=== PATIENT | female | born 1985 | race American Indian/Alaskan Native ===

== ENCOUNTER 2017-03-11 21:35 | Emergency (ER) | payer OTHER ==
[2017-03-11 22:50] LABS: Basophils % (Auto) 0.4 % (0.0-1.8); Eosinophils % (Auto) 3.9 % (0.0-4.3); Hematocrit 41.6 % (30.3-42.9); Hemoglobin 13.8 gm/dl (10.1-14.3); Mean Corpuscular HGB Conc 33 % (30-34); Mean Corpuscular Hemoglobin 28 pg (28-32); Mean Corpuscular Volume 84 fl (79-97); Platelet Count 244 K/mm3 (140-440); Red Blood Count 4.97 M/mm3 (3.65-5.03); Red Cell Distribution Width 13.2 % (13.2-15.2); White Blood Count 8.6 K/mm3 (4.5-11.0)
[2017-03-11 22:55] LABS: Alanine Aminotransferase 11 units/L (7-56); Albumin 4.3 g/dL (3.9-5); Alkaline Phosphatase 74 units/L (35-129); Anion Gap 18 mmol/L; BUN/Creatinine Ratio 11.66; Blood Urea Nitrogen 7 mg/dL (7-17); Calcium 9.6 mg/dL (8.4-10.2); Carbon Dioxide 26 mmol/L (22-30); Chloride 95.9 mmol/L (98-107); Glucose 100 mg/dL (65-100); Lipase 37 units/L (13-60); Potassium 4.2 mmol/L (3.6-5.0); Sodium 136 mmol/L (137-145); Total Protein 8.7 g/dL (6.3-8.2)
[2017-03-12] MEDS ORDERED: MORPHINE IV ONE (01:42)
[2017-03-12] MEDS ORDERED: LIDOCAINE VISCOUS 2% PO ONE (01:42)
[2017-03-12] MEDS ORDERED: ALUM-MAG HYDROX-SIMETH 200-200-20MG/5ML PO ONE (01:42)
[2017-03-12] MEDS ORDERED: PEPCID IV ONE (01:42)
[2017-03-12] MEDS ORDERED: ZOFRAN IV ONE (01:42)
--- NOTE | 2017-03-12 01:51 | Emergency Department Report ---
HPI - General Chief Complaint: Abdominal Pain Time Seen by Provider: 03/12/17 01:33 - [facility] HPI: Room 24 The patient is a 31-year-old female presenting with a chief complaint of abdominal pain. The patient states the past 2 weeks his had epigastric pain described as cramping and intermittent in nature. Patient admits to intractable nausea and vomiting since yesterday. Patient denies dysuria, hematuria, diarrhea or fever. The patient states she has taken Zantac but has not helped. The patient states she has had similar pain years ago which was diagnosed with peptic ulcer disease. Patient states her last EGD occurred 2009 Location: Epigastric Duration: Intermittent 2 weeks Quality: Cramping Severity: 06/21 Modifying factors: [see above] Context: [see above] Mode of transportation: [not driving] ED Past Medical Hx - Past Medical History Hx Asthma: Yes Additional medical history: PEPTIC ULCER - Surgical History Additional Surgical History: , TUBALIGATION - Family History Family history: no significant - Social History Smoking Status: Never Smoker Substance Use Type: None - Medications Home Medications: Home Medications Medication Instructions Recorded Confirmed Last Taken Type Docusate Sodium [Colace] 100 mg PO BID PRN #30 capsule 03/12/17 Unknown Rx Promethazine [Phenergan TAB] 25 mg PO Q6HR PRN #20 tab 03/12/17 Unknown Rx Promethazine [Phenergan] 25 mg AR Q6HR PRN #5 supp.rect 03/12/17 Unknown Rx traMADol [Ultram] 50 mg PO Q6HR PRN #14 tablet 03/12/17 Unknown Rx ED Review of Systems ROS: Stated complaint: STOMACH PAIN/VOMITING/NAUSEA Other details as noted in HPI Comment: All other systems reviewed and negative Constitutional: denies: chills, fever Eyes: denies: eye pain, eye discharge, vision change ENT: denies: ear pain, throat pain Respiratory: denies: cough, shortness of breath, wheezing Cardiovascular: denies: chest pain, palpitations Endocrine: no symptoms reported Gastrointestinal: abdominal pain, nausea, vomiting. denies: diarrhea Genitourinary: denies: urgency, dysuria, discharge Musculoskeletal: denies: back pain, joint swelling, arthralgia Skin: denies: rash, lesions Neurological: denies: headache, weakness, paresthesias Psychiatric: denies: anxiety, depression Hematological/Lymphatic: denies: easy bleeding, easy bruising Physical Exam - Physical Exam Vital Signs: Vital Signs 03/11/17 22:09 Temperature 99.1 F Pulse Rate 86 Respiratory 18 Rate Blood Pressure 140/96 O2 Sat by Pulse 98 Oximetry Physical Exam: GENERAL: The patient is well-developed well-nourished female lying on stretcher not appearing to be in acute distress. [] HEENT: Normocephalic. Atraumatic. Extraocular motions are intact. Patient has moist mucous membranes. NECK: Supple. Trachea midline CHEST/LUNGS: Clear to auscultation. There is no respiratory distress noted. HEART/CARDIOVASCULAR: Regular. There is no tachycardia. There is no gallop rub or murmur. ABDOMEN: Abdomen is soft, with mild discomfort to palpation in the epigastric region. There is no tenderness to palpation in the right upper, right lower, left upper or left lower quadrants. There is no rebound or guarding. Absent [place] sign. Patient has normal bowel sounds. There is no abdominal distention. SKIN: There is no rash. There is no edema. There is no diaphoresis. NEURO: The patient is awake, alert, and oriented. The patient is cooperative. The patient has normal speech MUSCULOSKELETAL: There is no evidence of acute injury. ED Course Vital Signs 03/11/17 22:09 Temperature 99.1 F Pulse Rate 86 Respiratory 18 Rate Blood Pressure 140/96 O2 Sat by Pulse 98 Oximetry ED Medical Decision Making - Lab Data Result diagrams: 03/11/17 22:19 03/11/17 22:19 Laboratory Tests 03/11/17 03/11/17 22:19 22:19 WBC 8.6 RBC 4.97 Hgb 13.8 Hct 41.6 MCV 84 MCH 28 MCHC 33 RDW 13.2 Plt Count 244 Lymph % (Auto) 16.0 [place] % (Auto) 7.8 H Eos % (Auto) 3.9 Baso % (Auto) 0.4 Lymph # 1.4 [place] # 0.7 Eos # 0.3 Baso # 0.0 Seg Neutrophils % 71.9 H Seg Neutrophils # 6.2 Sodium 136 L Potassium 4.2 Chloride 95.9 L Carbon Dioxide 26 Anion Gap 18 BUN 7 Creatinine 0.6 L Estimated GFR > 60 BUN/Creatinine Ratio 11.66 Glucose 100 Calcium 9.6 Total Bilirubin 0.70 AST 14 ALT 11 Alkaline Phosphatase 74 Total Protein 8.7 H Albumin 4.3 Albumin/Globulin Ratio 1.0 Lipase 37 - Radiology Data Radiology results: image reviewed (abdominal x-ray) interpreted by me: Abdominal [id number] amount of stool in the descending colon. No free air. No air-fluid levels - Differential Diagnosis peptic ulcer disease, gastritis, pancreatitis Critical care attestation.: If time is entered above; I have spent that time in minutes in the direct care of this critically ill patient, excluding procedure time. ED Disposition Clinical Impression: Epigastric abdominal pain, Nausea & vomiting Disposition: DISCHARGED TO HOME OR SELFCARE Is pt being admited?: No Does the pt Need Aspirin: No Condition: Stable Instructions: Abdominal Pain (ED) Additional Instructions: Return to the emergency department immediately should you develop worsening symptoms, fever, inability to tolerate food or liquid or any other concerns. Prescriptions: Docusate Sodium [Colace] 100 mg PO BID PRN #30 capsule PRN Reason: Constipation Promethazine [Phenergan TAB] 25 mg PO Q6HR PRN #20 tab PRN Reason: Nausea Promethazine [Phenergan] 25 mg AR Q6HR PRN #5 supp.rect PRN Reason: Vomiting traMADol [Ultram] 50 mg PO Q6HR PRN #14 tablet PRN Reason: Pain Referrals: EAMON ASIF MD [Staff Physician] - 3-5 Days (Dr. Asif is a primary physician. Please follow up with him to be established as a patient) ALEX AGUILAR MD [Staff Physician] - 3-5 Days (Dr. Aguilar is a advanced nursing professor. Please follow up with him for further evaluation) Time of Disposition: 03:07
[2017-03-12 02:24] VITALS: BP 131/82
--- NOTE | 2017-03-12 09:06 | XRay Report ---
ABDOMEN, 2 views: History: Epigastric abdominal pain, nausea and vomiting. There is no evidence of free air beneath the diaphragms. The gas pattern within the abdomen is unremarkable. There is no evidence of bowel dilatation, significant air-fluid levels, or pathologic calcifications. Organ shadows are unremarkable. IMPRESSION: Unremarkable abdomen.
== END 2017-03-12 03:15 | disposition home or self-care (01) ==
LOC: ED 21:35
DX: R10.13 Epigastric pain (principal); R11.2 Nausea with vomiting, unspecified; J45.909 Unspecified asthma, uncomplicated
CPT/HCPCS: 36415; 74020; 80053; 83690; 85025; 96374; 96375; 99284; J2270; J2405

== ENCOUNTER 2020-02-26 21:12 | Emergency (ER) | payer BC ==
[2020-02-26] MEDS: ZIPRASIDONE MESYLATE 20 MG VIAL IM ONE ×2 (21:15→21:50)
[2020-02-26] MEDS ORDERED: LORazepam 2 MG/ML VIAL ONE (21:34)
[2020-02-26] MEDS ORDERED: SODIUM CHLORIDE 0.9% 1000 ML 1,000 ML IV ONE (21:45)
[2020-02-26] MEDS ORDERED: LORazepam 2 MG/ML VIAL IM ONE (21:45)
--- NOTE | 2020-02-26 21:45 | Emergency Department Report ---
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 Pt is currently A&O x 3, not psychotic. Pt seen and evaluated by mental health Recommends rescinding 1013. Will d/c home. ED Disposition Clinical Impression: Acute psychosis, Marijuana intoxication, Anxiety, Agitation Disposition: DC-01 TO HOME OR SELFCARE Is pt being admited?: No Condition: Stable Instructions: Cannabis Abuse (ED) Referrals: [facility] MD ARCHIE [Primary Care Provider] - 2-3 Days <LORENE VALDEZ III - Last Filed: 02/27/20 22:23> ED General Adult HPI - General Source: patient, family Mode of arrival: Ambulatory Limitations: No Limitations - History of Present Illness Initial comments: Patient is a 34-year-old female that presents emergency room with complaints of dizziness, tingling all over, anxiety. Patient states she ate fish and she believes she is having a allergic reaction. Patient hyperventilating. Patient states her mouth is dry. Patient states she is hearing voices. -: Sudden ED Review of Systems ROS: Stated complaint: DIZZY, TINGLING ALL OVER, IMPAIRED VISION Other details as noted in HPI Comment: Unobtainable due to pts medical conditions ED Past Medical Hx - Past Medical History Previous Medical History?: Yes Hx Asthma: Yes Additional medical history: PEPTIC ULCER - Surgical History Past Surgical History?: Yes Additional Surgical History: , TUBALIGATION - Family History Family history: no significant - Social History Smoking Status: Never Smoker Substance Use Type: None ED Physical Exam - General Limitations: No Limitations General appearance: alert, anxious - Head Head exam: Present: atraumatic, normocephalic - Eye Eye exam: Present: normal appearance, PERRL Pupils: Present: normal accommodation - ENT ENT exam: Present: mucous membranes moist - Neck Neck exam: Present: normal inspection - Respiratory Respiratory exam: Present: normal lung sounds bilaterally. Absent: respiratory distress, wheezes, rales - Cardiovascular Cardiovascular Exam: Present: regular rate, normal rhythm. Absent: systolic murmur, diastolic murmur, rubs, gallop - GI/Abdominal GI/Abdominal exam: Present: soft, normal bowel sounds. Absent: distended, tenderness - Extremities Exam Extremities exam: Present: normal inspection - Back Exam Back exam: Present: normal inspection - Neurological Exam Neurological exam: Present: alert, altered - Psychiatric Psychiatric exam: Present: agitated, anxious - Expanded Psychiatric Exam Expanded Focused psych exam: Present: internal stimuli, psychomotor agitation, restlessness - Skin Skin exam: Present: warm, dry, intact, normal color. Absent: rash ED Course Vital Signs 02/26/20 02/26/20 02/26/20 21:24 21:44 21:45 Temperature Pulse Rate 141 H 133 H 135 H Respiratory 26 H 38 H Rate Blood Pressure 133/114 Blood Pressure [Left] O2 Sat by Pulse 100 100 100 Oximetry 02/26/20 02/26/20 02/26/20 22:01 22:15 22:36 Temperature Pulse Rate 125 H 96 H Respiratory 17 18 Rate Blood Pressure 144/89 153/73 153/73 Blood Pressure [Left] O2 Sat by Pulse 97 97 97 Oximetry 02/26/20 02/26/20 02/26/20 22:45 23:00 23:15 Temperature Pulse Rate 92 H 97 H Respiratory 17 18 14 Rate Blood Pressure 153/73 147/85 153/73 Blood Pressure [Left] O2 Sat by Pulse 94 94 99 Oximetry 02/26/20 02/26/20 02/27/20 23:31 23:45 00:00 Temperature Pulse Rate 94 H Respiratory 18 19 18 Rate Blood Pressure 150/83 154/88 155/77 Blood Pressure [Left] O2 Sat by Pulse 97 95 100 Oximetry 02/27/20 02/27/20 02/27/20 00:15 00:30 00:45 Temperature Pulse Rate 144 H 101 H 90 Respiratory 14 17 17 Rate Blood Pressure 155/77 157/91 136/67 Blood Pressure [Left] O2 Sat by Pulse 100 100 100 Oximetry 02/27/20 02/27/20 02/27/20 01:00 01:15 01:31 Temperature Pulse Rate 89 110 H 85 Respiratory 18 18 18 Rate Blood Pressure 124/60 137/94 108/56 Blood Pressure [Left] O2 Sat by Pulse 98 100 98 Oximetry 02/27/20 02/27/20 02/27/20 01:37 01:45 02:00 Temperature 98.3 F Pulse Rate 88 85 83 Respiratory 16 17 17 Rate Blood Pressure 113/65 103/55 Blood Pressure 137/96 [Left] O2 Sat by Pulse 99 99 98 Oximetry 02/27/20 02/27/20 02/27/20 02:15 02:30 02:45 Temperature Pulse Rate 86 88 85 Respiratory 15 16 17 Rate Blood Pressure 103/55 117/55 101/52 Blood Pressure [Left] O2 Sat by Pulse 100 100 99 Oximetry 02/27/20 02/27/20 02/27/20 03:00 03:15 03:30 Temperature Pulse Rate 83 90 80 Respiratory 17 14 18 Rate Blood Pressure 104/56 117/66 114/55 Blood Pressure [Left] O2 Sat by Pulse 99 99 99 Oximetry 02/27/20 02/27/20 02/27/20 03:45 04:00 04:15 Temperature Pulse Rate 78 77 76 Respiratory 17 16 18 Rate Blood Pressure 103/55 98/53 101/53 Blood Pressure [Left] O2 Sat by Pulse 98 98 99 Oximetry 02/27/20 02/27/20 02/27/20 04:31 04:45 05:00 Temperature Pulse Rate 72 76 76 Respiratory 15 15 15 Rate Blood Pressure 109/56 99/49 100/57 Blood Pressure [Left] O2 Sat by Pulse 100 100 100 Oximetry 02/27/20 02/27/20 02/27/20 05:15 05:30 05:45 Temperature Pulse Rate 74 75 125 H Respiratory 15 15 17 Rate Blood Pressure 101/50 102/52 102/52 Blood Pressure [Left] O2 Sat by Pulse 100 100 100 Oximetry 02/27/20 02/27/20 02/27/20 06:00 06:15 06:30 Temperature Pulse Rate 79 78 79 Respiratory 17 13 16 Rate Blood Pressure 124/54 121/65 105/44 Blood Pressure [Left] O2 Sat by Pulse 99 99 100 Oximetry 02/27/20 02/27/20 02/27/20 07:00 08:00 09:00 Temperature Pulse Rate 82 89 103 H Respiratory 19 20 16 Rate Blood Pressure 118/55 134/72 122/62 Blood Pressure [Left] O2 Sat by Pulse 100 100 100 Oximetry 02/27/20 02/27/20 02/27/20 10:00 10:19 11:00 Temperature Pulse Rate 92 H 84 Respiratory 21 16 18 Rate Blood Pressure 119/70 129/61 Blood Pressure [Left] O2 Sat by Pulse 100 100 Oximetry 02/27/20 02/27/20 12:00 13:00 Temperature Pulse Rate 72 76 Respiratory 20 19 Rate Blood Pressure 109/51 117/66 Blood Pressure [Left] O2 Sat by Pulse 99 100 Oximetry - Reevaluation(s) Reevaluation #1: Initial evaluation done. Patient patient was given Ativan for her agitation and anxiety. Patient did not calm down so patient was given Geodon. Patient is calming down. Patient becoming more cooperative. 02/26/20 21:56 Reevaluation #2: Vital signs have improved. Patient is resting comfortably. Patient is not showing any signs of distress or agitation at this time. 02/26/20 22:13 Reevaluation #3: Patient given fluids. Patient's vital signs stable. Patient resting in room. Patient is medically clear. Patient will be placed on 1013 due to her acute psychosis. Patient's final disposition will come from our psychiatric team and mental health team. 02/26/20 23:20 ED Medical Decision Making - Lab Data Result diagrams: 02/26/20 21:40 02/26/20 21:40 - Radiology Data Radiology results: report reviewed, image reviewed CHEST 1 VIEW 10:18 PM INDICATION / CLINICAL INFORMATION: Medical Clearance Psych. COMPARISON: None available. FINDINGS: SUPPORT DEVICES: None. HEART / MEDIASTINUM: Heart is upper normal size for AP portable technique. LUNGS / PLEURA: No significant pulmonary or pleural abnormality. No pneumothorax. ADDITIONAL FINDINGS: No significant additional findings. IMPRESSION: 1. No acute findings. CT HEAD WITHOUT CONTRAST INDICATION / CLINICAL INFORMATION: Medical Clearance Psych. TECHNIQUE: All CT scans at this location are performed using CT dose reduction for ALARA by means of automated exposure control. COMPARISON: None available. FINDINGS: HEMORRHAGE: None. EXTRA-AXIAL SPACES: Normal in size and morphology for the patient's age. VENTRICULAR SYSTEM: Normal in size and morphology for the patient's age. CEREBRAL PARENCHYMA: No significant abnormality. No acute territorial infarct. MIDLINE SHIFT OR HERNIATION: None. CEREBELLUM / BRAINSTEM: No significant abnormality. ORBITS: Normal as visualized. SOFT TISSUES of HEAD: No significant abnormality. CALVARIUM: No significant abnormality. PARANASAL SINUSES / MASTOID AIR CELLS: Normal as visualized. ADDITIONAL FINDINGS: None. IMPRESSION: 1. No acute intracranial abnormality. - Medical Decision Making Patient is a 34-year-old female that came in for multiple complaints and found to have acute psychosis, agitation anxiety. Patient was given Geodon and Ativan and the patient responded well. Patient's labs are unremarkable. Patient patient given fluids. Patient will remain in the ER on a 1013 on ER hold until cleared by our psychiatric and mental health team. - Differential Diagnosis Acute psychosis, dizziness, anxiety, agitation Critical care attestation.: If time is entered above; I have spent that time in minutes in the direct care of this critically ill patient, excluding procedure time. ED Disposition Is pt being admited?: No Does the pt Need Aspirin: No Time of Disposition: 23:18
[2020-02-26] MEDS ORDERED: ZIPRASIDONE MESYLATE 20 MG VIAL IM ONE (21:46)
[2020-02-26 21:59] LABS: Basophils # (Auto) 0.1 K/mm3 (0.0-0.1); Basophils % (Auto) 1.1 % (0.0-1.8); Eosinophils % (Auto) 11.2 % (0.0-4.3); Hematocrit 38.3 % (30.3-42.9); Hemoglobin 12.5 gm/dl (10.1-14.3); Lymphocytes # (Auto) 3.3 K/mm3 (1.2-5.4); Lymphocytes % (Auto) 36.7 % (13.4-35.0); Mean Corpuscular HGB Conc 33 % (30-34); Mean Corpuscular Volume 84 fl (79-97); Monocytes # (Auto) 1.1 K/mm3 (0.0-0.8); Monocytes % (Auto) 11.8 % (0.0-7.3); Platelet Count 253 K/mm3 (140-440); Red Blood Count 4.57 M/mm3 (3.65-5.03); Red Cell Distribution Width 13.9 % (13.2-15.2)
[2020-02-26 22:20] LABS: Alanine Aminotransferase 21 units/L (7-56); Albumin 4.3 g/dL (3.9-5); BUN/Creatinine Ratio 11; Blood Urea Nitrogen 9 mg/dL (7-17); Calcium 9.1 mg/dL (8.4-10.2); Hemolysis Index 14
--- NOTE | 2020-02-26 22:57 | Cat Scan Report ---
CT HEAD WITHOUT CONTRAST INDICATION / CLINICAL INFORMATION: Medical Clearance Psych. TECHNIQUE: All CT scans at this location are performed using CT dose reduction for ALARA by means of automated e xposure control. COMPARISON: None available. FINDINGS: HEMORRHAGE: None. EXTRA-AXIAL SPACES: Normal in size and morphology for the patient's age. VENTRICULAR SYSTEM: Normal in size and morphology for the patient's age. CEREBRAL PARENCHYMA: No significant abnormality. No acute territorial infarct. MIDLINE SHIFT OR HERNIATION: None. CEREBELLUM / BRAINSTEM: No significant abnormality. ORBITS: Normal as visualized. SOFT TISSUES of HEAD: No significant abnormality. CALVARIUM: No significant abnormality. PARANASAL SINUSES / MASTOID AIR CELLS: Normal as visualized. ADDITIONAL FINDINGS: None. IMPRESSION: 1. No acute intracranial abnormality. Signer Name: Anthony Machuca MD Signed: 02/26/2020 10:52 PM Workstation Name: [id number]
--- NOTE | 2020-02-26 23:10 | XRay Report ---
CHEST 1 VIEW 10:18 PM INDICATION / CLINICAL INFORMATION: Medical Clearance Psych. COMPARISON: None available. FINDINGS: SUPPORT DEVICES: None. HEART / MEDIASTINUM: Heart is upper normal size for AP portable technique. LUNGS / PLEURA: No significant pulmonary or pleural abnormality. No pneumothorax. ADDITIONAL FINDINGS: No significant additional findings. IMPRESSION: 1. No acute findings. Signer Name: Anthony Machuca MD Signed: 02/26/2020 11:06 PM Workstation Name: Mobile Location, [id number]
[2020-02-27 01:17] LABS: Bacteria,Urine 1+ /HPF (Negative); Bilirubin,Urine NEG (Negative); Blood,Urine NEG (Negative); Color,Urine Yellow (Yellow); Mucus,Urine 2+ /HPF; Protein,Urine <15 mg/dL mg/dL (Negative); Urobilinogen,Urine < 2.0 mg/dL (<2.0)
[2020-02-27 01:23] LABS: Amphetamine Screen,Urine PRESUMPTIVE NEGATIVE; Benzodiazepines Screen,Urine PRESUMPTIVE NEGATIVE; Cocaine Screen,Urine PRESUMPTIVE NEGATIVE; Methadone Screen,Urine PRESUMPTIVE NEGATIVE
[2020-02-27 02:02] LABS: Cannabinoid Screen,Urine PRESUMPTIVE POSITIVE
[2020-02-27 02:13] LABS: Opiate Screen,Urine PRESUMPTIVE NEGATIVE
[2020-02-27 13:43] VITALS: BP 117/66
== END 2020-02-27 13:55 | disposition home or self-care (01) ==
LOC: ED 21:12
DX: F23 Brief psychotic disorder (principal); R45.1 Restlessness and agitation; F41.9 Anxiety disorder, unspecified; R42 Dizziness and giddiness; F12.10 Cannabis abuse, uncomplicated; J45.909 Unspecified asthma, uncomplicated; Z98.51 Tubal ligation status; Z98.890 Other specified postprocedural states; Z91.013 Allergy to seafood; Z79.899 Other long term (current) drug therapy
CPT/HCPCS: 36415; 70450; 71045; 80053; 80307; 81001; 84443; 84703; 85025; 96360; 96372; 99285; J2060; J3486; J7030; 80320; G0480